=== PATIENT | male | born 1975 | race African-American/Black ===

== ENCOUNTER 2023-04-30 16:02 | Outpatient (REF) | payer MEDICAID, SELFPAY ==
[2023-04-30 17:41] LABS: Hematocrit 44.2 % (42.0-52.0); Mean Corpuscular HGB Conc 33.9 g/dl (31.0-36.0); Mean Corpuscular Hemoglobin 31.3 pg (27.0-33.0); Mean Corpuscular Volume 92.1 fL (80.0-98.0); Mean Platelet Volume 10.2 fL (9.4-12.4); Platelet Count 222 X10*3/uL (160-400); Red Cell Distribution Width 12.6 % (11.0-16.0)
[2023-04-30 18:01] LABS: Alanine Aminotransferase 31 U/L (0-40); Albumin Level 4.3 g/dL (3.5-5.0); Alkaline Phosphatase 83 U/L (39-117); Anion Gap 14 (12-20); Aspartate Amino Transferase 21 U/L (5-37); Bilirubin Total 0.4 mg/dL (0.0-1.0); Blood Urea Nitrogen 27 mg/dL (9-16); Calcium 9.9 mg/dL (8.4-10.2); Carbon Dioxide 26 mmol/L (22-29); Chloride 104 mmol/L (96-108); Cholesterol 203 mg/dL (<200); Estimated Glomerular Filt Rate 30; Glucose Random 64 mg/dL (60-115); HDL Cholesterol 29 mg/dL (>40); LDL Cholesterol Calculated 124 mg/dL (<100); Potassium 2.8 mmol/L (3.3-5.1); Sodium 141 mmol/L (135-145); Total Protein 8.4 g/dL (6.5-8.0); Triglycerides 254 mg/dL (<150)
[2023-04-30 18:15] LABS: TSH reflex Free T4 1.37 uIU/mL (0.32-4.0)
== END 2023-04-30 16:03 | disposition home or self-care (01) ==
LOC: HO.CHCLDS 16:02
PROVIDERS: Visit Provider Internal Medicine
DX: E11.69 Type 2 diabetes mellitus with other specified complication (principal); E11.22 Type 2 diabetes mellitus with diabetic chronic kidney disease; N18.32 Chronic kidney disease, stage 3b; E87.6 Hypokalemia
CPT/HCPCS: 36415; 80053; 80061; 84443; 85027

== ENCOUNTER 2024-08-05 10:10 | Outpatient (REF) | payer MEDICAID, SELFPAY ==
--- OUTSIDE RECORDS SUMMARY | 2024-08-05 11:58 | XMS_ITS | Encounter Summary ---
Author Organization [employer] Address [address] [place] [address] [address] [place] [address] Care Team Providers Care Aemt Name Role Phone Shania Reddy MD Primary Care Provider [phone]- [phone] Encounter Details Date Type Department Care Team (Late st Contact Info) Description 04/30/2023 Orders Only [facility]S [address] [place] [address] Shania Reddy MD [address] [place] [address] Hypokalemia (Primary Dx); Hypercholesterolemia Social History Tobacco Use Types Packs/Day Years Used Date Smoking Tobacco: Unknown Sex and Gender Information Value Date Recorded Sex Assigned at Male 03/27/2022 10:18 AM EDT Legal Sex Male 10:18 AM EDT Gender Identity Male 03/27/2022 10:18 AM EDT Sexual Orientation Choose not to disclose 2021 10:18 AM EDT documented as of this encounter Plan of Treatment Not on file documented as of this encounter Visit Diagnoses Diagnosis Hypokalemia- Primary Hypopotassemia Hypercholesterolemia Pure hypercholesterolemia documented in this encounter Care Teams Aemt Relationship Specialty Start Date End Date Shania Reddy MD [address] [place] [address] PCP - General Internal Medicine 06/04/13 documented as of this encounter
--- OUTSIDE RECORDS SUMMARY | 2024-08-05 11:58 | XMS_ITS | Encounter Summary ---
Author Organization [employer] Address [address] [place] [address] 7 [place] [address] Care Team Providers Care Swage Toolsetter Name Role Phone Shania Reddy MD Primary Care Provider [phone]- [phone] Encounter Details Date Type Department Care Team ([facility] st Contact Info) Description 05/11/2022 Orders Only [facility] MED & PEDS [address] [place] [address] Pia Perez LPN Social History Tobacco Use Types Packs/Day Years Used Date Smoking Tobacco: Never Assessed Sex and Gender Information Value Date Recorded Sex Assigned at Male 03/27/2022 10:18 AM EDT Legal Sex Male 10:18 AM EDT Gender Identity Male 03/27/2022 10:18 AM EDT Sexual Orientation Choose not to disclose 2021 10:18 AM EDT documented as of this encounter Plan of Treatment Not on file documented as of this encounter Visit Diagnoses Not on filedocumented in this encounter Care Teams Swage Toolsetter Relationship Specialty Start Date End Date Shania Reddy MD [address] [place] [address] PCP - General Internal Medicine 06/04/13 documented as of this encounter
--- OUTSIDE RECORDS SUMMARY | 2024-08-05 11:58 | XMS_ITS | Encounter Summary ---
Author Organization [employer] Address [address] [facility] 7t [place] [address] Care Team Providers Care Diazo Technician Name Role Phone Shania Reddy MD Primary Care Provider [phone] [phone] Encounter Details Date Type Department Care Team (Latest Contact Info) Description 08/05/2024 Travel Social History Tobacco Use Types Packs/Day Years Used Date Smoking Tobacco: Unknown Alcohol Answer Date Recorded How often do you have a drink containing alcohol ? 2 08/05/2024 How many drinks containing a lcohol do you have on a typical day when you are drinking? 0 08/05/2024 How often do you have six or more drinks on one occasion? 0 08/05/2024 Depression Answer Date Recorded Patient Health Questionnaire-9 Score 4 03/13/2024 Patient Health Questionnaire-9 Score 4 03/13/2024 Last PHQ-9: Questionnaire Data Not on file 1 Housing Stability Answer Date Recorded What is your housing situation today? I have susanfarooq naylor 01/22/[address] you li ve. Do you have problems with any of the following? None of the above 01/22/2024 Food Insecurity Answer Date Recorded Within the past 12 months, y ou worried that your food would run out before you got money to buy more: Never True 01/22/2024 Within the past 12 months,th e food you bought just didn't last and you didn't have enough money to get more: Never True Transportation Answer Date Recorded In the past 12 months, has l ack of transportation kept you from medical appts, meetings, work or from getting things needed for daily living? No 01/22/2024 Utilities Answer Date Recorded In the past 12 months, has t he electric, gas, oil or water company threatened to shut off services in your home? No 01/22/2024 Depression Answer Date Recorded Patient Health Questionnaire-2 Score 0 03/13/2024 Internet Access Answer Date Recorded Internet Access Q1 Yes 01/28/2024 Internet Access Q2 Not on file 01/28/2024 Sex and Gender Information Value Date Recorded Sex Assigned at Male 03/27/2022 10:18 AM EDT Legal Sex Male 10:18 AM EDT Gender Identity Male 03/27/2022 10:18 AM EDT Sexual Orientation Choose not to disclose 2021 10:18 AM EDT documented as of this encounter Plan of Treatment Not on file documented as of this encounter Visit Diagnoses Not on filedocumented in this encounter Additional Health Concerns Assessment Noted Time PHQ-9 Depression Total Score: 4 03/13/20 24 11:36 AM EDT documented as of this encounter Care Teams Diazo Technician Relationship Specialty Start Date End Date Shania Reddy MD [address] [place] [id number] PCP - General Internal Medicine 06/04/13 documented as of this encounter
--- OUTSIDE RECORDS SUMMARY | 2024-08-05 11:58 | XMS_ITS | Clinical Summary ---
Author Organization [facility] Address [address] [place] [address] Care Team Providers Care Corrections Identification Technician Name Role Phone Shania Reddy MD Primary Care Provider [phone] Allergies No known active allergies Medications bisacodyL (Dulcolax, bisacodyl,) 5 mg EC tablet Take 4 tabs by mouth right before beginning bowel prep. Follow instructions given by office for timing. 2 Active aspirin (ASPIR-81 ORAL) Take by mouth daily. Active miconazole (MICATIN) 2 % cream Apply topically 2 times daily. Active insulin glargine (LANTUS) 100 unit/mL injection Inject 40 Units under the skin at bedtime. Active chlorthalidone (HYGROTON) 25 mg tablet Take 1 tablet (25 mg total) by mouth 1 (one) time each day. Active omeprazole (PRILOSEC) 20 mg tablet,delayed release (DR/EC) Take by mouth daily. Active insulin lispro 100 unit/mL injection Inject into the skin 4 times daily. 6-14 UNITS 4 TIMES DAILY Active cloNIDine (CATAPRES) 0.1 mg tablet Take 1 tablet (0.1 mg total) by mouth 3 (three) times a day. Active ergocalciferol (VITAMIN D-2) 1,250 mcg (50,000 unit) capsule Take 1 capsule (50,000 Units total) by mouth 1 (one) time per week. Active dilTIAZem XR (DILACOR XR) 240 mg 24 hr capsule Take 1 capsule (240 mg total) by mouth 1 (one) time each day. Active gabapentin (NEURONTIN) 100 mg capsule Take 1 capsule (100 mg total) by mouth 3 (three) times a day. Active Active Problems Problem Noted Date Diagnosed Date Abnormal LFTs 01/05/2022 Chronic kidney disease, stage 3 01/05/2022 Diabetic neuropathy 01/05/2022 Esophageal reflux 01/05/2022 Hypertension 01/05/2022 Microcytic anemia 01/05/2022 Obesity 01/05/2022 Type 2 diabetes mellitus 01/05/2022 Medical History Medical History Date Comments Hypertension 01/05/2022 DX:Hypertension Esophageal reflux 01/05/2022 DX:Esophageal reflux Type 2 diabetes mellitus (CMS/HCC) 01/05/2022 DX:Type 2 diabetes mellitus (HCC) Diabetic neuropathy (CMS/HCC) 01/05/2022 DX :Diabetic neuropathy (HCC) Microcytic anemia 01/05/2022 DX:Microcytic anemia Obesity 01/05/2022 DX:Obesity Abnormal LFTs 01/05/2022 DX:Abnormal LFTs Chronic kidney disease, stag e 3 (CMS/HCC) 01/05/2022 DX:Chronic kidney disease, s tage 3 ([facility]) Social History Tobacco Use Types Packs/Day Years Used Date Smoking Tobacco: Never Assessed Sex and Gender Information Value Date Recorded Sex Assigned at Not on file Legal Sex Male 8:20 PM EST Gender Identity Not on file Sexual Orientation Not on file Obstetrics History Plan of Treatment Upcoming Encounters Date Type Department Care Team ([facility] st Contact Info) Description 10/01/2024 2:00 PM EDT Office Visit Orthopedic Surgery - [place] [address] [phone] Christopher Salomon, DPM [address] [address] Health Maintenance Due Date Last Done Comments Diabetes: Annual GFR (Glomer ular Filtration Rate) 1975 COVID-19 Vaccine (#1) 11/05/1980 Diabetes: Annual Foot Exam 11/05/1985 Diabetes: Annual Retina Eye Exam 11/05/1985 DTaP,Tdap,and Td Vaccines (1 - Tdap) 11/05/1994 Hepatitis B Vaccines (1 of 3 - 19+ 3-dose series) 11/05/1994 Pneumococcal Vaccine: Pediat rics (0 to 5 Years) and At-Risk Patients (6 to 64 Years) (1 of 2 - PCV) 11/05/1994 Cholesterol Screening (Lipid Panel) 04/29/2022 Colorectal Cancer Screening: Colonoscopy 04/29/2022 Depression Screening 04/29/2022 HIV Screening 04/29/2022 Hepatitis C Screening 04/29/2022 Social Influencers of Health Screening 04/29/2022 Diabetes: Annual Urine Albumin-Creatinine Ratio (uACR) 05/11/2022 Diabetes: Blood Sugar Contro l Test (HGBA1C) 05/11/2022 Hypertension/CHF/CAD Annual BMP Blood Test 05/11/2022 Influenza Vaccine (#1) 2024 HIB Vaccines Aged Out No longer eligi ble based on patient's age to complete this topic HPV Vaccines Aged Out No longer eligi ble based on patient's age to complete this topic Hepatitis A Vaccines Aged Out No long er eligible based on patient's age to complete this topic IPV Vaccines Aged Out No longer eligi ble based on patient's age to complete this topic MMR Vaccines Aged Out No longer eligi ble based on patient's age to complete this topic Meningococcal ACWY Vaccine Aged Out N o longer eligible based on patient's age to complete this topic Meningococcal B Vacine Aged Out No lo nger eligible based on patient's age to complete this topic RSV Immunization Patients Un darren 20 months Aged Out No longer eligible b ased on patient's age to complete this topic Varicella Vaccines Aged Out No longer eligible based on patient's age to complete this topic Care Teams Corrections Identification Technician Relationship Specialty Start Date End Date Shania Reddy MD [address] [place] [address] PCP - General Internal Medicine 05/02/21
--- OUTSIDE RECORDS SUMMARY | 2024-08-05 11:58 | XMS_ITS | Encounter Summary ---
Author Organization [email or web address] Address [address] [facility] 7 [place] [address] Care Team Providers Care Solutions Operator Name Role Phone Shania Reddy MD Primary Care Provider [phone] Reason for Visit * Reason Comments Diabetes Hypertension Encounter Details Date Type Department Care Team ([facility] st Contact Info) Description 08/05/2024 9:00 AM EDT Office Visit [facility] MED & PEDS [address] [place] [address] Shania Reddy MD [address] [place] [address] Essential hypertension (Primary Dx); Type 2 diabetes mellitus with diabetic polyneuropathy, with long-term current use of insulin (CMS/[facility]); Dietary counseling; Exercise counseling; Class 2 severe obesity due to excess calories with serious comorbidity and body mass index (BMI) of 38.0 to 38.9 in adult (CMS/HCC); Encounter for immunization Social History Tobacco Use Types Packs/Day Years [...] is your housing situation today? I have susan naylor 01/22/[address] you [...] AM EDT documented as of this encounter Last Filed Vital Signs Vital Sign Reading Time Taken Comments Blood Pressure 137/83 08/05/2024 9:13 AM EDT Pulse 72 08/05/2024 9:13 AM EDT Temperature 36.7 ??C (98 ??F) 08/05/2024 9:13 AM EDT Respiratory Rate 20 08/05/2024 9:13 AM EDT Oxygen Saturation 97% 08/05/2024 9:13 AM EDT Inhaled Oxygen Concentration - - Weight 119 kg (263 lb) 08/05/2024 9:13 AM EDT Height 178.4 cm (5' 10.25 ) 08/05/2024 9:13 AM E DT Body Mass Index 37.47 08/05/2024 9:13 AM EDT documented in this encounter Plan of Treatment Not on file documented as of this encounter Visit Diagnoses Diagnosis Essential hypertension- Primary Unspecified essential hypertension Type 2 diabetes mellitus with diabetic polyneuropathy, with long-term current use of insulin ([facility]) Dietary counseling Dietary surveillance and counseling Exercise counseling Class 2 severe obesity due to excess calories with serious comorbidity and body mass index (BMI) of 38.0 to 38.9 in adult ([facility]) Encounter for immunization documented in this encounter Additional Health Concerns Assessment Noted Time PHQ-9 Depression Total Score: 4 03/13/20 24 11:36 AM EDT documented as of this encounter Care Teams Solutions Operator Relationship Specialty Start Date End Date Shania Reddy MD [address] [place] [address] PCP - General Internal Medicine 06/04/13 documented as of this encounter
--- OUTSIDE RECORDS SUMMARY | 2024-08-05 11:58 | XMS_ITS | Encounter Summary ---
Author Organization [employer] Address [address] [facility] 7t [place] [address] Care Team Providers Care Community Outreach Director Name Role Phone Shania Reddy MD Primary Care Provider [phone] [phone] Encounter Details Date Type Department Care Team ([facility] st Contact Info) Description 03/17/2024 Orders Only [facility] CH[facility] MED & PEDS [address] [place], [place] [id number] Shania Reddy MD [address] [place] [address] Social History Tobacco Use Types Packs/Day Years Used Date Smoking Tobacco: Unknown Depression Answer Date Recorded Patient Health Questionnaire-9 [...] documented as of this encounter Care Teams Community Outreach Director Relationship Specialty Start Date End Date Shania Reddy MD [address] [place] [id number] PCP - General Internal Medicine 06/04/13 documented as of this encounter
--- OUTSIDE RECORDS SUMMARY | 2024-08-05 11:58 | XMS_ITS | Encounter Summary ---
Author Organization [employer] Address [address] [facility] 7 [place] [address] Care Team Providers Care Custom Dressmaker Name Role Phone Shania Reddy MD Primary Care Provider [phone]- [phone] Reason for Visit * Reason Onset Date Comments Call Back Request 09/24/2023 Encounter Details Date Type Department Care Team ([facility] st Contact Info) Description 09/24/2023 Telephone [facility] MEDICINE [address] [place] [address] Shania Reddy MD [address] [place] [phone] Call Back Request Social History Tobacco Use Types Packs/Day Years Used Date Smoking Tobacco: Unknown Sex and Gender Information Value Date Recorded Sex Assigned at Male 03/27/2022 10:18 AM EDT Legal Sex Male 10:18 AM EDT Gender Identity Male 03/27/2022 10:18 AM EDT Sexual Orientation Choose not to disclose 2021 10:18 AM EDT documented as of this encounter Miscellaneous Notes * Telephone Encounter - Elisabeth Olmedo RN - 09/27/2023 10:13 AM EDT TC X1 to pt regarding questions on insulin. LVM to return call to nurses. * Telephone Encounter - Mitali Granados - 09/24/2023 9:33 AM EDT Tc from pt requesting a call back in regards insulin, no further details provided. documented in this encounter Plan of Treatment Not on file documented as of this encounter Visit Diagnoses Not on filedocumented in this encounter Care Teams Custom Dressmaker Relationship Specialty Start Date End Date Shania Reddy MD [address] [place] [address] PCP - General Internal Medicine 06/04/13 documented as of this encounter
--- OUTSIDE RECORDS SUMMARY | 2024-08-05 11:58 | XMS_ITS | Clinical Summary ---
Author Organization [employer] Address [address] [place] [address] 7t [place] [address] Care Team Providers Care Beauty Artist Name Role Phone Shania Reddy MD Primary Care Provider [phone] Allergies No known active allergies Medications glucose blood (FREESTYLE LITE) test strip Use 1 by To Skin route 4 times every day 022 Active Comfort EZ Pen [place] 31G X 8 MM misc USE 4 (FOUR) TIMES DAILY 022 Active cloNIDine (Catapres) 0.1 MG tabletIndication s:Primary hypertension TAKE 1 TABLET BY MOUTH 3 (THREE) TIMES A DAY 90 tablet 3 023 Active Lancets miscIndications: Type 2 diabetes mellitus with other specified complication, without long-term current use of insulin ([facility]) To use 2 times a day 100 each 11 023 Active potassium chloride CR (Klor-Con M20) 20 MEQ ER tabletIndication s:Hypokalemia TAKE 1 TABLET BY MOUTH two (2) times a day FOR 5 DAYS 10 tablet 023 Active glucose blood (FreeStyle Precision Viktor Test) test stripIndications :Type 2 diabetes mellitus with hyperglycemia, with long-term current use of insulin ([facility]) Use to test blood sugar 2 times daily 100 each 12 024 2024 Active Lantus SoloStar 100 UNIT/ML penIndications:T ype 2 diabetes mellitus with other specified complication (CMS/HCC) INJECT 40 UNITS SUBCUTANEOUSLY AT BEDTIME 15 mL 11 024 Active Continuous Glucose Heavy Truck Technician (FreeStyle Anjali 2 [place]) deviceIndication s:Type 2 diabetes mellitus with hyperglycemia, with long-term current use of insulin ([facility]) Scan sensor every 8 hours 1 each Active Continuous Glucose Sensor (FreeStyle Anjali 2 Sensor) miscIndications: Type 2 diabetes mellitus with hyperglycemia, with long-term current use of insulin ([facility]) Apply 1 sensor every 14 days 2 each Active DULoxetine (Cymbalta) [address] capsuleIndicatio ns:Other depression Take 1 capsule (20 mg) by mouth 2 times daily. Do not crush or chew. 60 capsule 11 2024 Active insulin lispro (HumaLOG) 100 UNIT/ML injectionIndicat ions:Type 2 diabetes mellitus with chronic kidney disease, with long-term current use of insulin, unspecified CKD stage ([facility]) Inject 12 Units under the skin with breakfast, with lunch, and with evening meal. 15 mL 11 Active cloNIDine (Catapres) 0.1 MG tabletIndication s:Essential hypertension TAKE 1 TABLET BY MOUTH 3 (THREE) TIMES A DAY 90 tablet 5 024 Active gabapentin (Neurontin) 800 MG tabletIndication s:Diabetic polyneuropathy associated with type 2 diabetes mellitus ([facility]) TAKE 1 TABLET BY MOUTH 3 (THREE) TIMES A DAY 90 tablet 5 024 Active atorvastatin (Lipitor) 40 MG tabletIndication s:Hypercholester olemia TAKE 1 TABLET BY MOUTH EVERY DAY 30 tablet 5 024 Active dilTIAZem CD (Cardizem CD) 240 MG 24 hr capsuleIndicatio ns:Essential hypertension TAKE 1 CAPSULE BY MOUTH ONCE DAILY 30 capsule 5 024 Active amLODIPine (Norvasc) 5 MG tabletIndication s:Essential hypertension TAKE 1 TABLET BY MOUTH ONCE DAILY 30 tablet 5 024 Active chlorthalidone (Hygroton) 25 MG tabletIndication s:Essential hypertension TAKE 1 TABLET BY MOUTH ONCE DAILY 90 tablet 2 025 Active glipiZIDE (Glucotrol) 5 MG tabletIndication s:Type 2 diabetes mellitus with stage 3b chronic kidney disease, unspecified whether jail insulin use ([facility]) TAKE 1 TABLET BY MOUTH 3 (THREE) TIMES A DAY BEFORE MEALS 270 tablet 2 025 Active omeprazole (PriLOSEC) [address] Gloria ns:Gastroesophag eal reflux disease without esophagitis TAKE 1 CAPSULE BY MOUTH two (2) times a day BEFORE MEALS 180 capsule 2 025 Active D3 Super Strength 50 MCG (1999 UT) capsule TAKE 1 CAPSULE BY MOUTH ONCE DAILY 90 capsule 2 025 Active insulin pen needle (Comfort EZ Pen Whitehouse) 31G X 8 mm miscIndications: Type 2 diabetes mellitus with diabetic nephropathy, without long-term current use of insulin ([facility]) USE DIRECTED 4 (FOUR) TIMES DAILY 120 each 025 Active glucose blood (FREESTYLE LITE) test stripIndications :Controlled type 2 diabetes mellitus with other diabetic kidney complication, without long-term current use of insulin (CMS/HCC) To use 4 times a day 150 strip 5 025 Active FreeStyle lancets 1 each by Other route 4 times daily. 100 each 025 Active Alcohol Swabs (Alcohol Pads) 70 % padsIndications: Type 2 diabetes mellitus without complications (CMS/HCC) To use 4 times a day 100 each 025 Active insulin pen needle (Comfort EZ Pen Whitehouse) 31G X 8 mm miscIndications: Type 2 diabetes mellitus with diabetic nephropathy, without long-term current use of insulin (CMS/HCC) USE DIRECTED 4 (FOUR) TIMES DAILY 100 each 11 024 2024 Discontinued FREESTYLE LITE test stripIndications :Controlled type 2 diabetes mellitus with other diabetic kidney complication, without long-term current use of insulin (CMS/[facility]) USE TO TEST FINGER STICK BLOOD SUGAR 4 (FOUR) TIMES DAILY 150 strip 5 024 2024 Discontinued(R eorder (will not trigger notification to Pharmacy)) Alcohol Swabs (Alcohol Pads) 70 % padsIndications: Type 2 diabetes mellitus without complications (CMS/HCC) USE DIRECTED 4 (FOUR) TIMES DAILY (BEFORE MEALS AND AT BEDTIME) 100 each 11 024 2024 Discontinued(R eorder (will not trigger notification to Pharmacy)) FreeStyle lancets USE DIRECTED two (2) times a day 100 each 024 2024 Discontinued(R eorder (will not trigger notification to Pharmacy)) Active Problems Problem Noted Date Diagnosed Date Diabetic neuropathy 04/28/2021 04/30/2023 Abnormal liver function tests 10/06/2020 Microcytic anemia 10/06/2020 04/30/2023 Stage 3 chronic kidney disease 10/06/2020 1 07/01/2022 Type 2 diabetes mellitus 06/18/2019 023 Essential hypertension 10/20/2011 Encounters Date Type Department Care Team Description 08/05/2024 9:00 AM EDT Office Visit [facility] [address] [place] [address] Shania Reddy MD Essential hypertension (Primary Dx); Type 2 diabetes mellitus with diabetic polyneuropathy, with long-term current use of insulin ([facility]); Dietary counseling; Exercise counseling; Class 2 severe obesity due to excess calories with serious comorbidity and body mass index (BMI) of 38.0 to 38.9 in adult ([facility]); Encounter for immunization 08/05/2024 Travel 07/29/2024 Telephone [facility] [address] [place] [address] Shania Reddy MD Referral; Call Back Request 07/22/2024 Refill [facility] [address] [place] [address] Kimberly Kirkland LPN Controlled type 2 diabetes mellitus with other diabetic kidney complication, without long-term current use of insulin ([facility]); Type 2 diabetes mellitus without complications ([facility]) 07/22/2024 Telephone [facility] [address] [place] [address] Shania Reddy MD Med Refill 07/12/2024 Refill [facility] [address] [place] [address] Shania Reddy MD Type 2 diabetes mellitus with diabetic nephropathy, without long-term current use of insulin ([facility]) 06/03/2024 Refill [facility] [address] [place] [address] Shania Reddy MD Essential hypertension; Type 2 diabetes mellitus with stage 3b chronic kidney disease, unspecified whether ferry terminal agent insulin use (CMS/HCC); Gastroesophageal reflux disease without esophagitis 05/30/2024 Telephone [facility] [address] [place] [address] Shania Reddy MD no show 05/29/2024 Telephone [facility] [address] [place] [address] Shania Reddy MD Nurse Triage 05/26/2024 Telephone [facility] [address], [place] [phone] Shania Reddy MD recall appt (Pt needs appt) 05/14/2024 Refill [facility] [address] [place], [place] [phone] Shania Reddy MD Type 2 diabetes mellitus without complications (CMS/HCC); Essential hypertension; Diabetic polyneuropathy associated with type 2 diabetes mellitus (CMS/HCC); Hypercholesterolemia from Last 3 Months Immunizations Name Administration Dates Next Due Hep B, adult 05/03/2021 Moderna Covid-19 Vaccine 12+ 07/12/2021 Tdap 03/13/2024,01/06/2013 Social History Tobacco Use Types Packs/Day Years Used Date Smoking Tobacco: Unknown Tobacco Cessation:Counseling Given: Not Answered Alcohol Answer Date Recorded How often do [...] not to disclose 2021 10:18 AM EDT Last Filed Vital Signs Vital Sign Reading [...] Mass Index 37.47 08/05/2024 9:13 AM EDT Plan of Treatment Health Maintenance Due Date Last Done Comments CT Colonography 1975 Colonoscopy 1975 FIT 1975 FOBT 1975 Sigmoidoscopy 1975 Eye Exam 11/05/1985 Family Planning (PISQ) 11/05/1990 Hepatitis B Vaccines (2 of 3 - 19+ 3-dose series) 05/31/2021 05/03/2021 Diabetes: Hemoglobin A1C 10/30/2023 04/30/2023, 05/05/2020 Diabetes: Foot Exam 04/30/2024 04/30/2023, 04/30/2023, 04/30/2023, Additional history exists Lipid Panel 04/30/2024 04/30/2023, 10/05/2020 Influenza Vaccine (#1) 2024 Postp oned from 01/27/2024 (Patient Refused) SDOH Screening 01/21/2025 01/22/2024 COVID-19 Vaccine ( - season) 2025 11/25/2021, 07/12/2021 Postponed from 01/27/2024 (Patient Refused) Depression Screening 03/13/2025 03/13/2024, 03/13/20 24 Pneumococcal Vaccine: Pediatrics (0 to 5 Years) and At-Risk Patients (6 to 49) Years) (1 of 2 - PCV) 03/13/2025 Postponed from 11/05/1994 (Patient Refused) Alcohol/Substance Use Screening 08/05/2025 08/05/2024 Tobacco Screening 08/05/2025 08/05/2024 Zoster Vaccines (1 of 2) 11/05/2025 Colorectal Cancer Screening 03/28/2027 FIT DNA/Cologuard 03/28/2027 03/28/2024 DTaP/Tdap/Td Vaccines (3 - Td or Tdap) 03/13/2034 03/13/2024, 01/06/2013 RSV Patients and Patients Aged 60 years or older (1 - 1-dose 75+ series) 11/05/2050 HIV Screening Completed 04/28/2021 Hepatitis C Screening Completed 04/28/2021 HIB Vaccines Aged Out No longer eligi [...] patient's age to complete this topic Meningococcal Vaccine Aged Out No ami glo eligible based on patient's age to complete this topic RSV under 20 months Aged Out No longe r eligible based on patient's age to complete this topic Rotavirus Vaccines Aged Out No longer eligible based on patient's age to complete this topic Procedures Procedure Name Priority Date/Time Associated Diagnosis Comments LAB COLOGUARD?? COLON CANCER SCREEN Routine 03/28/2024 10:42 AM EDT Screening for colon cancer LIPID PANEL, STANDARD Routine 04/30/2023 4:04 PM EST Type 2 diabetes mellitus with other specified complication, without long-term current use of insulin (CMS/HCC) POCT GLYCATED HEMOGLOBIN, TOTAL Routine 04/30/2023 3:37 PM EST Type 2 diabetes mellitus with other specified complication, without long-term current use of insulin (CMS/HCC) ZZZ HISTORICAL HEPATITIS C AB W/REFL TO HCV RNA, QN, PCR Routine 04/28/2021 11:11 AM EST HIV 1/2 ANTIGEN/ANTIBODY, FOURTH GENERATION W/RFL Routine 04/28/2021 11:09 AM EST from Last 3 Months or Most Recently Relevant to Health Maintenance Results * (ABNORMAL) Cologuard?? colon cancer screening (03/28/2024 10:42 AM EDT) Cologuard Result Positive( A) Negative 04/06/2024 12:17 AM EST [facility] (CLIA #:[id number]) Comment: POSITIVE TEST RESULT. A positive Cologuard result should be followed with a colonoscopy or visual examination of the colon. The normal value (reference range) for this assay is negative. TEST DESCRIPTION: Composite algorithmic analysis of stool DNA-biomarkers with hemoglobin immunoassay. ?? Quantitative values of individual biomarkers are not reportable and are not associated with individual biomarker result reference ranges. Cologuard is intended for colorectal cancer screening of adults of either sex, 45 years or older, who are at average-risk for colorectal cancer (CRC). Cologuard has been approved for use by the U.S. FDA. The performance of Cologuard was established in a cross sectional study of average-risk adults aged 50-84. Cologuard performance in patients ages 45 to 49 years was estimated by sub-group analysis of near-age groups. Colonoscopies performed for a positive result may find as the most clinically significant lesion: colorectal cancer [4.0%], advanced adenoma (including sessile serrated polyps greater than or equal to 1cm diameter) [20%] or non- advanced adenoma [31%]; or no colorectal neoplasia [45%]. These estimates are derived from a prospective cross-sectional screening study of 10,000 individuals at average risk for colorectal cancer who were screened with both Cologuard and colonoscopy. (Quinton Manzano al, N Engl J Med 2014;370(14):6281-9793.) Cologuard may produce a false negative or false positive result (no colorectal cancer or precancerous polyp present at colonoscopy follow up). A negative Cologuard test result does not guarantee the absence of CRC or advanced adenoma (pre-cancer). The current Cologuard screening interval is every 3 years. ([place] [employer] Society and U.S. Multi-Society Task Force). Cologuard performance data in a 10,000 patient pivotal study using colonoscopy as the reference method can be accessed at the following location: [email or web address]/results. Additional description of the Cologuard test process, warnings and precautions can be found at [email or web address]. Stool specimen (specimen) 03/28/2024 10:42 AM EDT 03/29/2024 12:38 PM EDT Shania Reddy MD LAB MOLECULAR DIAGNOSTICS O RDERABLES Final Result [facility] (CLIA #:[id number]) [address] [place] [address], * (ABNORMAL) Lipid Panel, Standard (04/30/2023 4:04 PM EST) Triglycerides 254(H) <150 mg/dL [facility] Comment:Desirable Triglyceri de: less than 150 mg/dLBorderline High Triglyceride 150-199 mg/dLHigh Triglyceride: 200-499 mg/dLVery High Triglyceride: greater than or equal to 5OO mg/dL Cholesterol 203(H) <200 mg/dL [facility] Comment:Desirable Cholestero l: less than 200 mg/dLBorderline High Cholesterol: 200-239 mg/dLHigh Cholesterol: greater than 239 mg/dL LDL Cholesterol Calculated 124(H) <100 mg/dL [facility] Comment:Desirable LDL: less than 100 mg/dLNear Optimal/Above Optimal LDL: 110- 129 mg/dLBorderline High LDL: 130-159 mg/dLHigh LDL: 160-189 mg/dLVery High LDL: greater than or equal to 190 mg/dL HDL Cholesterol 29(L) >40 mg/dL [facility] Comment:Desirable HDL: great er than 40 mg/dL Note: This HDL assay may give artificially low results in patients with liver disease. Blood Venous blood specimen / Unknown 04/30/2023 4:04 PM EST 04/30/2023 5:26 PM EST us Shania Reddy MD LAB BLOOD ORDERABLES Final Result [facility] [address] [place] [phone] * POCT A1C (04/30/2023 3:37 PM EST) Pathologist [facility] Hemoglobin A1C 5.7 4.0 - 6.0 % QC Media Lot # [id number] Lot# Expiration Date Blood 04/30/2023 3:37 PM EST Shania Reddy MD POINT OF CARE TEST ENTER/ED IT ORDERABLES Final Result * HEPATITIS C AB W/REFL TO HCV RNA, QN, PCR (04/28/2021 11:11 AM EST) HEPATITIS C ANTIBODY NON-REACT [facility] NON-REACT [facility] INDEX 0.03 <1.00 [facility] Comment: ?? HCV antibody was non-reactive. There is no laboratory ?? evidence of HCV infection. ?? In most cases, no further action is required. However, if recent HCV exposure is suspected, a test for HCV RNA (test code 41403) is suggested. ?? For additional information please refer to http://Mebelrama.[employer]inti/faq/DSQ57b1 (This link is being provided for informational/ educational purposes only.) ?? 04/28/2021 11:1 1 AM EST Shania Reddy MD HISTORICAL/NON ORDERABLE LA BS Final Result Performing Organization Address [facility] Phone Number [facility] [address] * HIV 1/2 ANTIGEN/ANTIBODY,FOURTH GENERATION W/RFL (04/28/2021 11:09 AM EST) Pathologist [facility] HIV-1/2 ANTIGEN AND ANTIBODIES, 4TH GENERATION W/ REFLEX NON-REACT VENKATA NON-REACT VENKATA [facility] Comment: HIV-1 antigen and HIV-1/HIV-2 antibodies were not detected. There is no laboratory evidence of HIV infection. ?? PLEASE NOTE: This information has been disclosed to you from records whose confidentiality may be protected by state law. ??If your state requires such protection, then the state law prohibits you from making any further disclosure of the information without the specific written consent of the person to whom it pertains, or as otherwise permitted by law. A general authorization for the release of medical or other information is NOT sufficient for this purpose. ? For additional information please refer to http://Mebelrama.Qinti/faq/GCG107 (This link is being provided for informational/ educational purposes only.) ? The performance of this assay has not been clinically validated in patients less than 2 years old. ?? 04/28/2021 11:0 9 AM EST Shania Reddy MD LAB BLOOD ORDERABLES Final Result Performing Organization Address [facility] Phone Number [facility] [address] from Last 3 Months or Most Recently Relevant to Health Maintenance Insurance Care Teams Beauty Artist Relationship Specialty Start Date End Date Shania Reddy MD [address] [place] [phone] PCP - General Internal Medicine 06/04/13
--- OUTSIDE RECORDS SUMMARY | 2024-08-05 11:58 | XMS_ITS | Encounter Summary ---
Author Organization [employer] Address [address] [place] [address] [address] [place] [address] Care Team Providers Care Aviation Electronics Technician Name Role Phone Shania Reddy MD Primary Care Provider [phone] Reason for Referral * Medications - Closed Specialty Diagnoses / Procedures Referred By Contkim t Referred To Contact Diagnoses Type 2 diabetes mellitus with hyperglycemia, with long-term current use of insulin (CMS/HCC) Shania Reddy MD [address] [place] [address] Phone: tel: fax: Referral ID Status Reason Start Date Expiration Date Visits Re quested Visits Authorized [id number] Closed 1 1 Encounter Details Date Type Department Care Team (Late st Contact Info) Description 01/14/2024 Orders Only [facility] [address] [place] [phone] Shania Reddy MD [address] [place] [address] Type 2 diabetes mellitus with hyperglycemia, with long-term current use of insulin (CMS/HCC) (Primary Dx) Social History Tobacco Use Types Packs/Day Years [...] as of this encounter Visit Diagnoses Diagnosis Type 2 diabetes mellitus with hyperglycemia, with long-term current use of insulin ([facility])- Primary documented in this encounter Care Teams Aviation Electronics Technician Relationship Specialty Start Date End Date Shania Reddy MD [address] [place] [phone] PCP - General Internal Medicine 06/04/13 documented as of this encounter
--- OUTSIDE RECORDS SUMMARY | 2024-08-05 11:58 | XMS_ITS | Encounter Summary ---
Author Organization [employer] Address [address] [facility] 7t [place] [address] Care Team Providers Care Monomer Recovery Operator Name Role Phone Shania Reddy MD Primary Care Provider [phone] Reason for Visit * Reason Comments Med Refill Encounter Details Date Type Department Care Team ([facility] st Contact Info) Description 07/12/2024 Refill [facility] [address] [place] [address] Shania Reddy MD [address] [place] [address] Type 2 diabetes mellitus with diabetic nephropathy, without long-term current use of insulin ([facility]) Social History Tobacco Use Types Packs/Day [...] Diagnoses Diagnosis Type 2 diabetes mellitus with diabetic nephropathy, without long-term current use of insulin ([facility]) documented in this encounter Additional Health Concerns Assessment Noted Time PHQ-9 Depression Total Score: 4 03/13/20 24 11:36 AM EDT documented as of this encounter Care Teams Monomer Recovery Operator Relationship Specialty Start Date End Date Shania Reddy MD [address] [place] [phone] PCP - General Internal Medicine 06/04/13 documented as of this encounter
--- OUTSIDE RECORDS SUMMARY | 2024-08-05 11:58 | XMS_ITS | Encounter Summary ---
Author Organization [employer] Address [address] [facility] 7 [place] [address] Care Team Providers Care Compressed Gases Tester Name Role Phone Shania Reddy MD Primary Care Provider [phone] Reason for Visit * Reason Onset Date Comments Med Refill 07/22/2024 Encounter Details Date Type Department Care Team ([facility] st Contact Info) Description 07/22/2024 Telephone [facility] [address] [place] [address] Shania Reddy MD [address] [place] [phone] Med Refill Social History Tobacco Use Types Packs/Day Years [...] encounter Miscellaneous Notes * Telephone Encounter - Carolina Swain - 07/22/2024 8:51 AM EST TC from pt requesting medication refill. Medications needing refill : [employer] TEST STRIPS To be sent to: [facility] - [place], [place] - [phone] [place] - [address] documented in this encounter Plan of Treatment Not on file documented as of this encounter Visit Diagnoses Not on filedocumented in this encounter Additional Health Concerns Assessment Noted Time PHQ-9 Depression Total Score: 4 03/13/20 24 11:36 AM EDT documented as of this encounter Care Teams Compressed Gases Tester Relationship Specialty Start Date End Date Shania Reddy MD [address] [place] [phone] PCP - General Internal Medicine 06/04/13 documented as of this encounter
--- OUTSIDE RECORDS SUMMARY | 2024-08-05 11:58 | XMS_ITS | Encounter Summary ---
Author Organization [employer] Address [address] [facility] 7t [place] [address] Care Team Providers Care Purchaser Name Role Phone Shania Reddy MD Primary Care Provider [phone] Encounter Details Date Type Department Care Team (Late st Contact Info) Description 02/08/2024 Orders Only [facility] [address] [place], [place] [phone] Shania Reddy MD [address] [place] [address] Type 2 diabetes mellitus with diabetic polyneuropathy, with long-term current use of insulin ([facility]) (Primary Dx) Social History Tobacco Use Types Packs/Day Years Used Date Smoking Tobacco: Unknown Housing Stability Answer Date Recorded What is [...] off services in your home? No 01/22/2024 Internet Access Answer Date Recorded Internet Access [...] Diagnosis Type 2 diabetes mellitus with diabetic polyneuropathy, with long-term current use of insulin ([facility])- Primary documented in this encounter Care Teams Purchaser Relationship Specialty Start Date End Date Shania Reddy MD [address] [place] [phone] PCP - General Internal Medicine 06/04/13 documented as of this encounter
--- OUTSIDE RECORDS SUMMARY | 2024-08-05 11:58 | XMS_ITS | Encounter Summary ---
Author Organization [employer] Address [address] [facility] 7 [place] [address] Care Team Providers Care Tree And Shrub Worker Name Role Phone Shania Reddy MD Primary Care Provider [phone]- [phone] Reason for Visit * Reason Onset Date Comments Referral 07/29/2024 Call Back Request 07/29/2024 Encounter Details Date Type Department Care Team (Late st Contact Info) Description 07/29/2024 Telephone [facility] MEDICINE [address] [place] [address] Shania Reddy MD [address] [place] [phone] Referral; Call Back Request Social History Tobacco Use [...] encounter Miscellaneous Notes * Telephone Encounter - Ignacia Mota - 08/05/2024 11:21 AM EDT LM with patient at two different Tel# Request that patient come in and picker tender forms at Medical records. Patient is required to fill out the forms and not the doctor * Telephone Encounter - Kendall Jenkins - 07/29/2024 2:44 PM EST Tc from pt requesting a call back regarding podiatry referral and pt states that it has been a whole month and has not heard from anyone. documented in this encounter Plan of Treatment Not on file documented as of this encounter Visit Diagnoses Not on filedocumented in this encounter Additional Health Concerns Assessment Noted Time PHQ-9 Depression Total Score: 4 03/13/20 24 11:36 AM EDT documented as of this encounter Care Teams Tree And Shrub Worker Relationship Specialty Start Date End Date Shania Reddy MD [address] [place] [id number] PCP - General Internal Medicine 06/04/13 documented as of this encounter
--- OUTSIDE RECORDS SUMMARY | 2024-08-05 11:58 | XMS_ITS | Encounter Summary ---
Author Organization [employer] Address [address] [place] [address] 7 [place] [address] Care Team Providers Care Application Development Intern Name Role Phone Shania Reddy MD Primary Care Provider [phone]- [phone] Encounter Details Date Type Department Care Team (Late st Contact Info) Description 01/31/2023 Orders Only [facility] MED & PEDS [address] [place] [address] Pia Perez LPN Social History Tobacco Use [...] on filedocumented in this encounter Care Teams Application Development Intern Relationship Specialty Start Date End Date Shania Reddy MD [address] [place] [address] PCP - General Internal Medicine 06/04/13 documented as of this encounter
--- OUTSIDE RECORDS SUMMARY | 2024-08-05 11:58 | XMS_ITS | Encounter Summary ---
Author Organization [employer] Address [address] [place] [address] [address] [place] [address] Care Team Providers Care Structural Drafter Name Role Phone Shania Reddy MD Primary Care Provider [phone]- [phone] Reason for Visit * Reason Comments Med Refill Encounter Details Date Type Department Care Team ([facility] st Contact Info) Description 12/21/2022 Refill [facility] CHC MED & PEDS [address] [place] [address] Shania Reddy MD [address] [place] [address] Social History Tobacco Use Types Packs/Day Years [...] on filedocumented in this encounter Care Teams Structural Drafter Relationship Specialty Start Date End Date Shania Reddy MD [address] [place] [address] PCP - General Internal Medicine 06/04/13 documented as of this encounter
--- OUTSIDE RECORDS SUMMARY | 2024-08-05 11:58 | XMS_ITS | Encounter Summary ---
Author Organization [employer] Address [address] [place] [address] 7 [place] [address] Care Team Providers Care Furnace Tapper Name Role Phone Shania Reddy MD Primary Care Provider [phone] Encounter Details Date Type Department Care Team (Late st Contact Info) Description 07/04/2022 Abstract [facility] MED & PEDS [address] [place] [address] Shania Reddy MD [address] [place] [address] Social History Tobacco Use Types Packs/Day Years [...] on filedocumented in this encounter Care Teams Furnace Tapper Relationship Specialty Start Date End Date Shania Reddy MD [address] [place] [address] PCP - General Internal Medicine 06/04/13 documented as of this encounter
--- OUTSIDE RECORDS SUMMARY | 2024-08-05 11:58 | XMS_ITS | Encounter Summary ---
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, without long-term current use of insulin (CMS/HCC); Type 2 diabetes mellitus without complications (CMS/HCC) Social History Tobacco Use Types Packs/Day Years [...] as of this encounter Visit Diagnoses Diagnosis 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
--- OUTSIDE RECORDS SUMMARY | 2024-08-05 11:58 | XMS_ITS | Encounter Summary ---
Author Organization [employer] Address [address] [place] [address] Care Team Providers Care Heavy Mobile Equipment Repairer Name Role Phone Shania Reddy MD Primary Care Provider [phone]- [phone] Reason for Visit * Reason Onset Date Comments Referral 11/08/2022 Encounter Details Date Type Department Care Team ([facility] st Contact Info) Description 11/08/2022 Telephone [facility] CHC MED & PEDS [address] [place] [address] Shania Reddy MD [address] [place] [address] Referral Social History Tobacco Use Types Packs/Day Years Used Date Smoking Tobacco: Never Assessed Sex and Gender Information Value Date Recorded Sex Assigned at Male 03/27/2022 10:18 AM EDT Legal Sex Male 10:18 AM EDT Gender Identity Male 03/27/2022 10:18 AM EDT Sexual Orientation Choose not to disclose 2021 10:18 AM EDT documented as of this encounter Miscellaneous Notes * Telephone Encounter - Meka Rey - 11/08/2022 1:36 PM EDT Tc from patient requesting for a renewal for podiatry referral from 05/18/21 on nexgen. Patient went to Referrals Date-N/A Time- N/A Address- [address] [place] [address] Specialty- Podiatry documented in this encounter Plan of Treatment Not on file documented as of this encounter Visit Diagnoses Diagnosis Type 2 diabetes mellitus with other specified complication, without long-term current use of insulin ([facility])- Primary documented in this encounter Care Teams Heavy Mobile Equipment Repairer Relationship Specialty Start Date End Date Shania Reddy MD [address] [place] [id number] PCP - General Internal Medicine 06/04/13 documented as of this encounter
[2024-08-05 14:12] LABS: MANUAL DIFF FLAG NO
[2024-08-05 14:17] LABS: Basophils Percent Auto 0.4 % (0-2); Eosinophils Absolute Auto 0.3 X10*3/uL (0.0-0.4); Hematocrit 42.7 % (42.0-52.0); Hemoglobin 14.2 g/dl (14.0-18.0); Imm Gran Abs Auto 0.04 X10*3/uL (0.00-0.03); Imm Gran Pct Auto 0.4 % (0.0-0.4); Lymphocytes Absolute Auto 3.4 X10*3/uL (1.2-4.9); Lymphocytes Percent Auto 33.1 % (20-40); Mean Corpuscular HGB Conc 33.3 g/dl (31.0-36.0); Mean Corpuscular Volume 93.2 fL (80.0-98.0); Mean Platelet Volume 10.6 fL (9.4-12.4); Monocytes Absolute Auto 0.6 X10*3/uL (0.1-1.2); Monocytes Percent Auto 5.9 % (2-11); Neutrophils Absolute Auto 5.9 x10*3/uL (2.0-8.3); Neutrophils Percent Auto 57.2 % (45-73); Platelet Count 203 X10*3/uL (160-400); Red Blood Count 4.58 X10*6/uL (4.60-5.80); Red Cell Distribution Width 12.6 % (11.0-16.0); White Blood Count 10.4 X10*3/uL (4.8-10.8)
[2024-08-05 14:47] LABS: Alanine Aminotransferase 42 U/L (0-40); Albumin Level 3.9 g/dL (3.5-5.0); Alkaline Phosphatase 90 U/L (39-117); Anion Gap 11 (12-20); Aspartate Amino Transferase 31 U/L (5-37); Bilirubin Total 0.4 mg/dL (0.0-1.0); Blood Urea Nitrogen 18 mg/dL (9-16); Calcium 9.1 mg/dL (8.4-10.2); Carbon Dioxide 26 mmol/L (22-29); Chloride 104 mmol/L (96-108); Cholesterol 143 mg/dL (<200); Estimated Glomerular Filt Rate 34; Glucose Random 178 mg/dL (60-115); HDL Cholesterol 30 mg/dL (>40); LDL Cholesterol Calculated 81 mg/dL (<100); Sodium 138 mmol/L (135-145); Total Protein 7.7 g/dL (6.5-8.0); Triglycerides 163 mg/dL (<150)
[2024-08-05 15:05] LABS: TSH reflex Free T4 1.73 uIU/mL (0.32-4.0)
== END 2024-08-05 10:11 | disposition home or self-care (01) ==
LOC: HO.CHCLDS 10:10
PROVIDERS: Visit Provider Internal Medicine
DX: E11.65 Type 2 diabetes mellitus with hyperglycemia (principal); Z79.4 Long term (current) use of insulin
CPT/HCPCS: 36415; 80053; 80061; 84443; 85025